=== PATIENT | female | born 1985 | race Caucasian/White ===

== ENCOUNTER → 2025-05-03 15:56 | Outpatient (CLI) | payer OTHER, SELFPAY ==
[2025-05-03 17:09] LABS: TSH w/ Reflex to FT4 0.56 uIU/mL (0.47-4.68)
== END ==
PROVIDERS: PCP Physician Assistant; Referring Provider Student in an Organized Health Care Education/Training Program; Visit Provider Student in an Organized Health Care Education/Training Program
DX: N92.6 Irregular menstruation, unspecified (principal)
CPT/HCPCS: 36415; 84443